=== PATIENT | female | born 1985 | race African-American/Black ===

== ENCOUNTER 2025-01-08 12:11 | Emergency (ER) | payer OTHER ==
[~2025-01-08] VITALS: Ht 167.6 cm; Wt 98.0 kg
[2025-01-08 12:20] VITALS: O2SAT 100
[2025-01-08] MEDS: SODIUM CHLORIDE 0.9% 1,000 ML IV ONE (12:35)
[2025-01-08 14:56] LABS: BASOPHILS % 0.2 % (0.0-2.0); EOSINOPHILS % 0.4 % (0.0-5.0); HEMATOCRIT. 37.6 % (36.0-48.0); HEMOGLOBIN. 12.5 g/dL (12.0-16.0); LYMPHOCYTES % 15.3 % (20.0-50.0); MEAN PLATELET VOLUME 8.3 fl (7.4-10.4); MONOCYTES % 6.1 % (2.0-8.0); NEUTROPHILS % 78.0 % (40.0-76.0); PLATELET 283 x1000/uL (130-400); RED BLOOD CELL COUNT 4.24 mill/uL (4.2-5.4); RED CELL DISTRIBUTION WIDTH 13.9 % (11.6-14.6)
[2025-01-08 15:13] LABS: CREATININE 0.8 mg/dL (0.6-1.0); UREA NITROGEN BLOOD 6 mg/dL (9-23)
[2025-01-08 15:15] LABS: ASPARTATE AMINOTRANSFERASE 19 IU/L (<34); BILIRUBIN DIRECT 0.3 mg/dL (<=3.0); BILIRUBIN TOTAL 0.9 mg/dL (0.1-1.0); PROTEIN TOTAL 7.3 g/dL (6.0-8.3); TROPONIN I HIGH SENSITIVITY < 4 ng/L (3.0-34)
[2025-01-08 15:26] VITALS: BP 114/64; PULSE 85; RESP 18; TEMP 36.7; O2SAT 98
[2025-01-08 15:27] LABS: HCG SCREEN NEGATIVE
== END 2025-01-08 16:09 | disposition home or self-care (01) ==
LOC: ER 12:11
DX: R55 Syncope and collapse (principal); F12.10 Cannabis abuse, uncomplicated; F17.200 Nicotine dependence, unspecified, uncomplicated; R06.02 Shortness of breath
CPT/HCPCS: 99285; 96360; 70450; 71045; 80076; 80048; 84703; 83880; 83735; 85025; 84484; 36415; 93005; J7030; A4606

== ENCOUNTER 2025-02-24 15:21 | Emergency (ER) | payer OTHER ==
[~2025-02-24] VITALS: Ht 160 cm; Wt 100.0 kg
[2025-02-24 15:24] VITALS: TEMP 99; O2SAT 100
[2025-02-24] MEDS: ONDANSETRON 4MG ODT PO ONE (17:25)
[2025-02-24] MEDS: SODIUM CHLORIDE 0.9% 1,000 ML IV ONE (18:10)
[2025-02-24 18:46] LABS: BASOPHILS % 0.1 % (0.0-2.0); EOSINOPHILS % 0.7 % (0.0-5.0); HEMATOCRIT. 39.3 % (36.0-48.0); HEMOGLOBIN. 13.4 g/dL (12.0-16.0); LYMPHOCYTES % 12.6 % (20.0-50.0); MEAN PLATELET VOLUME 8.1 fl (7.4-10.4); MONOCYTES % 6.2 % (2.0-8.0); NEUTROPHILS % 80.4 % (40.0-76.0); PLATELET 388 x1000/uL (130-400); RED BLOOD CELL COUNT 4.51 mill/uL (4.2-5.4); RED CELL DISTRIBUTION WIDTH 14.5 % (11.6-14.6)
[2025-02-24 18:47] LABS: HCG SCREEN NEGATIVE
[2025-02-24 18:48] LABS: INR 1.0
[2025-02-24 18:49] LABS: CREATININE 0.7 mg/dL (0.6-1.0); UREA NITROGEN BLOOD 6 mg/dL (9-23)
[2025-02-24 18:50] LABS: ETHANOL BLOOD < 10 mg/dL (<10); TROPONIN I HIGH SENSITIVITY < 4 ng/L (3.0-34)
[2025-02-24 18:51] LABS: ASPARTATE AMINOTRANSFERASE 17 IU/L (<34); BILIRUBIN DIRECT 0.4 mg/dL (<=3.0); BILIRUBIN TOTAL 1.5 mg/dL (0.1-1.0); PROTEIN TOTAL 8.1 g/dL (6.0-8.3)
[2025-02-24] MEDS: IOHEXOL-350 100 ML BOTTLE ONE (20:39)
[2025-02-24 21:57] VITALS: BP 115/74; PULSE 98; RESP 20; O2SAT 100
== END 2025-02-24 22:07 | disposition home or self-care (01) ==
LOC: ER 15:21
DX: S40.022A Contusion of left upper arm, initial encounter (principal); Z55.6 Problems related to health literacy; W26.9XXA Contact with unspecified sharp object(s), initial encounter; Y93.89 Activity, other specified; Y92.89 Other specified places as the place of occurrence of the external cause; Y99.8 Other external cause status
CPT/HCPCS: 80076; 80048; 80320; 84703; 83880; 85025; 85379; 85610; 85730; 84484; 36415; 71045; 71275; 73206; 93005; 96360; 96361; 99285; Q9967; Q0162; J7030; G0480